=== PATIENT | male | born 1970 | race African-American/Black ===

== ENCOUNTER 2020-08-18 16:07 | Emergency (ER) | payer OTHER ==
[~2020-08-18 16:07] MED LIST: CRESTOR20 MG PO; GLUCOPHAGE850 MG PO; HUMALOG 75100 UNIT/M SC; JANUVIA50 MG PO; MELOXICAM15 MG PO; NOVOLIN 70100 UNIT/2 SC; PROTONIX 40MG T40 MG PO; ZESTRIL5 MG PO
== END 2020-08-18 17:30 | disposition home or self-care (01) ==
LOC: FER 16:07
DX: S63.601A Unspecified sprain of right thumb, initial encounter (principal); I10 Essential (primary) hypertension; E11.9 Type 2 diabetes mellitus without complications; E78.5 Hyperlipidemia, unspecified; F17.200 Nicotine dependence, unspecified, uncomplicated; W22.03XA Walked into furniture, initial encounter; Y92.009 Unspecified place in unspecified non-institutional (private) residence as the place of occurrence of the external cause
CPT/HCPCS: 73140